=== PATIENT | female | born 1950 | race Caucasian/White ===

== ENCOUNTER → 2023-01-02 | Outpatient (CLI) | payer MEDICARE, OTHER ==
[~2023-01-02] MED LIST: CHOL10002 PO; CIPR500 PO; CODACE60 PO; HYDACE5325 PO; MULVITMINE PO; PHENA100 PO; PHENA200 PO
[2023-01-02 15:55] LABS: BASOPHILS ABSOLUTE AUTO 0.03 K/mm3 (0.00-0.23); BASOPHILS PERCENT AUTO 1 % (0-2); EOSINOPHILS ABSOLUTE AUTO 0.09 K/mm3 (0.00-0.68); EOSINOPHILS PERCENT AUTO 2 % (0-6); Hematocrit 43.8 % (33.0-51.0); Hemoglobin 14.8 g/dL (11.5-16.0); IMMATURE GRAN ABSOLUTE AUTO 0.01 K/mm3 (0.00-0.10); IMMATURE GRAN PERCENT AUTO 0 % (0-1); LYMPHOCYTES ABSOLUTE AUTO 2.43 K/mm3 (0.84-5.20); LYMPHOCYTES PERCENT AUTO 47 % (21-46); MONOCYTES ABSOLUTE AUTO 0.35 K/mm3 (0.16-1.47); MONOCYTES PERCENT AUTO 7 % (4-13); Mean Corpuscular HGB 30.2 pg (26.0-34.0); Mean Corpuscular HGB Conc 33.8 g/dL (31.5-36.5); Mean Corpuscular Volume 89 fL (80-100); Mean Platelet Volume 8.6 fL (9.1-12.4); NEUTROPHILS PERCENT AUTO 44 % (41-73); Platelet Count 169 K/mm3 (150-400); RDW Coefficient Variation 12.7 % (11.7-14.2); RDW Standard Deviation 41.6 fL (35.1-46.3); White Blood Cell Count 5.21 K/mm3 (4.00-11.30)
[2023-01-02 16:01] LABS: Bun/Creatinine Ratio 25.6 (12.0-20.0); Calcium, Blood 9.5 mg/dL (8.5-10.1); Creatinine, Blood 0.78 mg/dL (0.40-1.00)
== END | disposition home or self-care (01) ==
LOC: LAB SHORT 15:48
PROVIDERS: Physician Assistant Medical
DX: R60.9 Edema, unspecified (principal)
CPT/HCPCS: 80048; 83880; 85025; 85379

== ENCOUNTER 2024-05-25 18:39 | Emergency (ER) | payer OTHER ==
[~2024-05-25] VITALS: Ht 165.1 cm; Wt 86.2 kg
[2024-05-25 20:33] LABS: BASOPHILS ABSOLUTE AUTO 0.03 K/mm3 (0.00-0.23); BASOPHILS PERCENT AUTO 1 % (0-2); EOSINOPHILS ABSOLUTE AUTO 0.01 K/mm3 (0.00-0.68); EOSINOPHILS PERCENT AUTO 0 % (0-6); Hematocrit 40.4 % (33.0-51.0); Hemoglobin 13.8 g/dL (11.5-16.0); IMMATURE GRAN ABSOLUTE AUTO 0.01 K/mm3 (0.00-0.10); IMMATURE GRAN PERCENT AUTO 0 % (0-1); LYMPHOCYTES ABSOLUTE AUTO 0.68 K/mm3 (0.84-5.20); LYMPHOCYTES PERCENT AUTO 11 % (21-46); MONOCYTES ABSOLUTE AUTO 0.42 K/mm3 (0.16-1.47); MONOCYTES PERCENT AUTO 7 % (4-13); Mean Corpuscular HGB 30.7 pg (26.0-34.0); Mean Corpuscular HGB Conc 34.2 g/dL (31.5-36.5); Mean Corpuscular Volume 90 fL (80-100); Mean Platelet Volume 8.7 fL (9.1-12.4); NEUTROPHILS ABSOLUTE AUTO 5.33 K/mm3 (1.96-9.15); NEUTROPHILS PERCENT AUTO 82 % (41-73); Platelet Count 134 K/mm3 (150-400); RDW Coefficient Variation 12.6 % (11.7-14.2); RDW Standard Deviation 41.2 fL (35.1-46.3); Red Blood Cell Count 4.49 M/mm3 (3.80-5.20); White Blood Cell Count 6.48 K/mm3 (4.00-11.30)
[2024-05-25 20:52] LABS: Albumin, Blood 4.2 g/dL (3.4-5.0); Albumin/Globulin Ratio 1.1 (0.8-1.8); Bilirubin, Total 0.9 mg/dL (0.1-1.0); Bun/Creatinine Ratio 23.4 (12.0-20.0); Calcium, Blood 9.5 mg/dL (8.5-10.1); Creatinine, Blood 0.73 mg/dL (0.40-1.00); Globulin, Blood 3.7 g/dL (2.2-4.0); Potassium, Blood 3.9 mmol/L (3.5-5.5); Total Protein, Blood 7.9 g/dL (6.4-8.2)
[2024-05-25] MEDS ORDERED: NS 1,000 ML IV SCH (23:10)
[2024-05-26] VITALS: BP 136/78
== END 2024-05-26 00:10 | disposition home or self-care (01) ==
LOC: ER 18:39
PROVIDERS: Student in an Organized Health Care Education/Training Program
DX: R11.0 Nausea (principal); F11.20 Opioid dependence, uncomplicated; G43.909 Migraine, unspecified, not intractable, without status migrainosus; Z79.899 Other long term (current) drug therapy
CPT/HCPCS: 80053; 85025; 93005; 93010; 99284-25; J7030

== ENCOUNTER 2024-11-12 06:14 | Day surgery (SDC) | payer OTHER ==
[~2024-11-12] VITALS: Ht 165.1 cm; Wt 84.5 kg
[2024-11-12] VITALS (22 sets, daily range): BP systolic 135–179; BP diastolic 68–778
[~2024-11-12 06:14] MED LIST changes: +ANTIBIOTIC PO; -CODACE60 PO; +MASOPHEN325 M3 PO
[2024-11-12] MEDS ORDERED: OxyCODONE HCL 10 MG TABCR PO SCH (06:20)
[2024-11-12] MEDS ORDERED: Ropivacaine 0.5% HCl/Pf 123.125 MG,EPINEPHrine HCL 0.25 MG,Ketorolac Tromethamine 15 MG... INFIL SCH (06:20)
[2024-11-12] MEDS ORDERED: CeFAZolin Sodium 2,000 MG in NS 100 ML IV SCH ×2 (06:20→16:00)
[2024-11-12] MEDS ORDERED: Acetaminophen 500 MG Tab PO SCH ×2 (06:20→16:00)
[2024-11-12] MEDS ORDERED: Tranexamic Acid 1,000 MG in NS 100 ML IV SCH (06:20)
[2024-11-12] MEDS ORDERED: Chlorhexidine Mouth Care 15 ML UDC MT SCH (06:20)
[2024-11-12] MEDS ORDERED: Lactated Ringer's 1,000 ML IV SCH ×2 (06:20→09:55)
--- NOTE | 2024-11-12 06:25 | NUR ---
INTO SDS VIA WHEELCHAIR. PT A&OX4-TARDIVE DYSKENESIA NOTED-PT BASELINE. PT REPORTS 9/10 LEFT KNEE PAIN.PT APPEARS ANXIOUS AND STATES "I'M ANXIOUS AND JUST WANT TO GET IT OVER WITH!" HISTORY AND ALLERGIES REVIEWED. LUNGS DIMINISHED IN THE BASES. SBP 170'S-PT CRIED OUT WHILE BP CUFF INFLATING AND ASKED "CAN YOU TAKE IT OFF?" RN EXPLAINED TO PT THAT BP WILL BE MONITORED THROUGH OUT SURGERY AND AFTERWARDS WELL. PT VERBALIZED UNDERSTANDING. NPO STATUS CONFIRMED. PT DID ONLY 1 CHLORHEXIDINE SHOWER. CHLORHEXIDINE WIPE X 2.
[2024-11-12] MEDS ORDERED: Midazolam HCl 1MG / ML 2ML Vial ONE (07:10)
[2024-11-12] MEDS ORDERED: propofoL 20 ML IV ONE ×3 (07:13→08:35)
[2024-11-12] MEDS ORDERED: FentaNYL Citrate 50 MCG/ML 2 ML Injection ONE ×2 (07:18→09:40)
[2024-11-12] MEDS ORDERED: CeFAZolin Sodium 2,000 MG VIAL ONE (07:20)
[2024-11-12] MEDS ORDERED: Dexamethasone Sod Phos 10 MG/ML 1ML VIAL ONE (08:39)
[2024-11-12] MEDS ORDERED: Ketorolac Tromethamine 30mg Vial ONE (08:39)
[2024-11-12] MEDS ORDERED: Ondansetron HCl 2 MG / ML 2ML Vial ONE ×2 (08:39→09:53)
[2024-11-12] MEDS ORDERED: Ondansetron HCl 2 MG / ML 2ML Vial IV PRN (09:50)
[2024-11-12] MEDS ORDERED: Metoclopramide HCl 5MG / ML 2ML Vial IV PRN (09:50)
[2024-11-12] MEDS ORDERED: OxyCODONE HCL 5 MG TAB PO PRN ×2 (09:50)
[2024-11-12] MEDS ORDERED: HYDROmorphone HCl/Pf 1MG SYR IV PRN (09:55)
[2024-11-12] MEDS ORDERED: FLU VACC TS2024-25(6MOS UP)/PF 45 MCG/0.5 ML SYRINGE IM SCH (09:55)
[2024-11-12] MEDS ORDERED: Magnesium Hydroxide Conc 10 ML UDC PO PRN (09:55)
[2024-11-12] MEDS ORDERED: DiphenhydrAMINE HCL 25 MG Cap PO PRN (09:55)
[2024-11-12] MEDS ORDERED: HYDROmorphone HCl/Pf 1MG SYR ONE (09:57)
[2024-11-12] MEDS ORDERED: Bisacodyl 10 MG Supp PR PRN (10:00)
[2024-11-12] MEDS ORDERED: Promethazine HCl 25 MG Tab PO PRN (10:00)
[2024-11-12] MEDS ORDERED: Ketorolac Tromethamine 15mg Vial IV SCH (12:00)
[2024-11-12] MEDS ORDERED: ASPI81CH PO (16:45)
--- NOTE | 2024-11-12 19:36 | NUR ---
SHIFT SUMMARY WAS INITIALLY VERY IMPULSIVE, NOT USING CALL LIGHT BUT THIS AFTERNOON HAS BEGAN USING CALL LIGHT. WAS ABLE TO WORK w/ THERAPY. REPORTS PAIN HIGH THIS EVENING & PLAN IS TO INCREASE PO PAIN MEDS. SURG SITE IS WN. OVERALL, PT IS CHILDLIKE.
[2024-11-12] MEDS ORDERED: Docusate Sodium 100 MG Cap PO SCH (21:00)
[2024-11-13 03:18] VITALS: BP 139/82
[2024-11-13 05:00] LABS: BASOPHILS ABSOLUTE AUTO 0.01 K/mm3 (0.00-0.23); BASOPHILS PERCENT AUTO 0 % (0-2); EOSINOPHILS PERCENT AUTO 0 % (0-6); Hematocrit 30.2 % (33.0-51.0); Hemoglobin 10.3 g/dL (11.5-16.0); IMMATURE GRAN ABSOLUTE AUTO 0.02 K/mm3 (0.00-0.10); IMMATURE GRAN PERCENT AUTO 0 % (0-1); LYMPHOCYTES ABSOLUTE AUTO 1.25 K/mm3 (0.84-5.20); LYMPHOCYTES PERCENT AUTO 19 % (21-46); MONOCYTES ABSOLUTE AUTO 0.62 K/mm3 (0.16-1.47); MONOCYTES PERCENT AUTO 10 % (4-13); Mean Corpuscular HGB 30.5 pg (26.0-34.0); Mean Corpuscular HGB Conc 34.1 g/dL (31.5-36.5); Mean Corpuscular Volume 89 fL (80-100); Mean Platelet Volume 9.3 fL (9.1-12.4); NEUTROPHILS ABSOLUTE AUTO 4.62 K/mm3 (1.96-9.15); NEUTROPHILS PERCENT AUTO 71 % (41-73); Platelet Count 121 K/mm3 (150-400); RDW Coefficient Variation 12.6 % (11.7-14.2); RDW Standard Deviation 41.3 fL (35.1-46.3); Red Blood Cell Count 3.38 M/mm3 (3.80-5.20); White Blood Cell Count 6.52 K/mm3 (4.00-11.30)
[2024-11-13 05:23] LABS: Bun/Creatinine Ratio 28.5 (12.0-20.0); Calcium, Blood 9.1 mg/dL (8.5-10.1); Creatinine, Blood 0.88 mg/dL (0.40-1.00); Magnesium, Blood 1.8 mg/dL (1.6-2.4); Potassium, Blood 4.6 mmol/L (3.5-5.5)
--- NOTE | 2024-11-13 05:46 | NUR ---
SHIFT SUMMARY NOC. PT POD 1 FOR L TOTAL KNEE. AIDA AND AQUACEL DRESSING C/D/I, POLAR PACK IN PLACE. PT MEDICATED FOR PAIN WITH OXYCODONE 10MG WITH REPORTED RELIEF OF SX. PT ANXIOUS AT START OF SHIFT, IMPROVED WITH SUPPORT AND COMMUNICATION. PT CHILDLIKE WITH RESPONSES AT TIMES. PT VERY UNSTEADY AT START BUT IMPROVED T/O NIGHT. PT NOW 1 PERSON MINIMAL ASSIST WITH GB, AND WALKER. BED ALARM SET FOR SAFETY D/T IMPULSIVITY. PT VOIDING AND TOLERATING PO INTAKE. CALL LIGHT IN REACH.
[2024-11-13 07:19] VITALS: BP 159/82
[2024-11-13] MEDS ORDERED: Aspirin 81 MG Chew PO SCH (09:00)
--- NOTE | 2024-11-13 11:00 | NUR ---
PT PROVIDED WITH WRITTEN AND VERBAL DISCHARGE INSTRUCTIONS, SHE VERBALIZED UNDERSTANDING. PT PROVIDED WITH CLEAN DRESSINGS AND INSTRUCTIONS REGARDING DRESSING CHANGES AND SURGICAL SITE CARE. ATTEMPTED TO PLACE KRISTIE HOSE, CORRECT SIZE OBTAINED BUT PT DECLINED KRISTIE HOSE AND STATED THEY WERE TO TIGHT, PT EDUCATED THAT THEY ARE SUPPOSED TO BE TIGHT. PT EDUCATED REGARDING RISKS OF NOT USING COMPRESSION STOCKINGS, SHE REPORTED UNDERSTANDING BUT DECLINED TO ALLOW THIS RN TO PLACE THEM. PT EDUCATED ABOUT PROPER ELEVATION AND POSITIONING OF HER LEG WHILE AT REST, SHE REPORTED UNDERSTANDING. PT IS WAITING FOR HER FRIEND TO TAKE HER HOME AT THIS TIME. PT CLEARED THERAPY, IS TOLERATING PO, PAIN MANAGED AND SHE HAS BEEN ABLE TO VOID.
[2024-11-13 12:00] VITALS: BP 128/56
--- NOTE | 2024-11-13 13:08 | NUR ---
PT DISCHARGED HOME AT 1215. PT ASSISTED OUT IN W/C TO VEHICLE.
== END 2024-11-13 12:10 | disposition home or self-care (01) ==
LOC: ORSCMMR 06:14 → ORD 07:30 → SURS 10:21 → ORSCMMR 11-13 12:10
PROVIDERS: Orthopaedic Surgery
PROC: 0SRD0JA Replacement of Left Knee Joint with Synthetic Substitute, Uncemented, Open Approach (ICD-10-PCS; principal; 2024-11-12 07:30)
DX: M17.12 Unilateral primary osteoarthritis, left knee (principal); J44.9 Chronic obstructive pulmonary disease, unspecified; Z79.899 Other long term (current) drug therapy
CPT/HCPCS: 36415; 73560-LT; 80048; 83735; 85025; 97110; 97110-CQ; 97116; 97116-CQ; 97162; 97530-CQ; A9270; C1713; C1776; J0171; J0690; J0735; J1100; J1171; J1885; J2250; J2405; J2704; J2795; J3010; J7120